=== PATIENT | female | born 1945 | race Hispanic/Latino ===

== ENCOUNTER 2017-02-19 13:45 | Outpatient (CLI) | payer MEDICARE, OTHER ==
--- NOTE | 2017-02-19 14:17 | XRay Report ---
Bilateral knees: History: Knee pain. Findings: Marked narrowing of the medial compartment of left knee joint and lateral compartment of right knee joint. Sclerotic articular surfaces and peripheral osteophyte suggestive of severe degenerative changes. Severe degenerative changes also noted at the right and left patellofemoral compartment. There is suspicion of fluid in the suprapatellar right and left bursa. No evidence of acute fracture. Extensive vascular calcifications. 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
== END 2017-02-19 13:46 | disposition home or self-care (01) ==
LOC: SPVIMAG 13:45
PROVIDERS: ATTEND Orthopaedic Surgery Sports Medicine
DX: M17.0 Bilateral primary osteoarthritis of knee (principal); M25.861 Other specified joint disorders, right knee; M25.862 Other specified joint disorders, left knee